=== PATIENT | male | born 1980 | race Caucasian/White ===

== ENCOUNTER 2021-08-20 14:41 | Emergency (ER) | payer BC | END 2021-08-20 19:20 | disposition home or self-care (01) | LOC: ER1 14:41 | DX: S22.41XA Multiple fractures of ribs, right side, initial encounter for closed fracture (principal); S42.114A Nondisplaced fracture of body of scapula, right shoulder, initial encounter for closed fracture; S42.001A Fracture of unspecified part of right clavicle, initial encounter for closed fracture; V86.96XA Unspecified occupant of dirt bike or motor/cross bike injured in nontraffic accident, initial encounter; Y92.410 Unspecified street and highway as the place of occurrence of the external cause | CPT/HCPCS: 71101; 71260; 73000; 73030; 96374; 99284; J1885; Q9967 ==